=== PATIENT | female | born 1985 | race Caucasian/White ===

== ENCOUNTER 2019-06-26 06:47 | Inpatient (IN) | payer MEDICAID, OTHER ==
[~2019-06-26] VITALS: Ht 157.5 cm; Wt 78.9 kg
[2019-06-26] VITALS (35 sets, daily range): BP systolic 52–135; BP diastolic 15–80
[2019-06-26] MEDS ORDERED: DEXT 5%/LR + PITOCIN 20UNITS/L 1,000 ML IV ONE (07:23)
[2019-06-26] MEDS ORDERED: FENTANYL CITRATE/PF 50MCG/ML 2ML VIAL ONE ×2 (07:42→15:04)
[2019-06-26] MEDS ORDERED: MORPHINE SULFATE/PF 1MG/ML 10ML AMP ONE (07:43)
[2019-06-26] MEDS ORDERED: DEXT 5%/LACTATED RINGERS 1,000 ML IV SCH (07:47)
[2019-06-26] MEDS ORDERED: PENICILLIN G POTASSIUM 5 MMU in DEXT 5% WATER 100 ML IV SCH (08:00)
[2019-06-26] MEDS ORDERED: CEFAZOLIN SODIUM 1000MG/VIAL ONE (08:03)
[2019-06-26] MEDS ORDERED: OXYTOCIN 10 UNITS/ML 1ML ONE (08:03)
[2019-06-26] MEDS ORDERED: EPHEDRINE SULFATE 50MG/ML VIAL ONE ×2 (08:03→11:27)
[2019-06-26] MEDS ORDERED: GLYCOPYRROLATE 0.2 MG/ML 2ML VIAL ONE ×2 (08:09→11:27)
[2019-06-26 08:14] LABS: BASOPHILS % 0.3 % (0.0-2.0); EOSINOPHILS % 0.8 % (0.0-5.0); HEMATOCRIT. 37.4 % (36.0-48.0); HEMOGLOBIN. 12.9 g/dL (12.0-16.0); LYMPHOCYTES % 19.3 % (20.0-50.0); MEAN CORPUSCULAR HEMOGLOBIN 30.2 pg (28.0-32.0); MEAN CORPUSCULAR VOLUME 87.6 fL (81.0-99.0); MEAN PLATELET VOLUME 8.1 fl (7.4-10.4); MONOCYTES % 3.7 % (2.0-8.0); NEUTROPHILS % 75.9 % (40.0-76.0); PLATELET 171 x1000/uL (130-400); RED BLOOD CELL COUNT 4.27 mill/uL (4.2-5.4); RED CELL DISTRIBUTION WIDTH 13.4 % (11.6-14.6)
[2019-06-26] MEDS ORDERED: METOCLOPRAMIDE HCL 10MG/2ML VIAL ONE (08:18)
[2019-06-26] MEDS ORDERED: ONDANSETRON HCL 4MG/2ML INJ ONE (08:18)
[2019-06-26 08:19] LABS: CLARITY URINE TURBID (CLEAR); COLOR URINE RED (YELLOW); KETONES URINE 1+ (NEGATIVE); LEUKOCYTE ESTERASE URINE 3+ (NEGATIVE); NITRITE URINE POSITIVE (NEGATIVE); OCCULT BLOOD URINE 3+ (NEGATIVE); PROTEIN URINE 2+ (NEGATIVE); SPECIFIC GRAVITY URINE 1.015 (1.005-1.030)
[2019-06-26] MEDS ORDERED: DEXT 5%/LR + PITOCIN 20UNITS/L 1,000 ML IV SCH (08:23)
[2019-06-26] MEDS ORDERED: KETOROLAC 60MG/2ML VIAL IM ONE (08:25)
[2019-06-26] MEDS ORDERED: IBUPROFEN 400MG TABLET PO PRN (08:30)
[2019-06-26] MEDS ORDERED: RHO(D) IMMUNE GLOBULIN 300 MCG/SYR IM PRN (08:30)
[2019-06-26] MEDS ORDERED: HEMORRHOIDAL SUPP PR PRN (08:30)
[2019-06-26] MEDS ORDERED: HYDROCODONE/ACETAMINOPHEN 5/325MG TABLET PO PRN (08:30)
[2019-06-26] MEDS ORDERED: BISACODYL 10MG SUPP PR PRN (08:30)
[2019-06-26] MEDS ORDERED: ACETAMINOPHEN WITH CODEINE 300/30MG TABLET PO PRN (08:30)
[2019-06-26 08:57] LABS: *AMPHETAMINES SCREEN URINE NEGATIVE (NEGATIVE); *BARBITURATES SCREEN URINE NEGATIVE (NEGATIVE); *BENZODIAZEPINES SCREEN URINE NEGATIVE (NEGATIVE); *COCAINE SCREEN URINE NEGATIVE (NEGATIVE); OPIATES URINE SCREEN NEGATIVE (NEGATIVE); PHENCYCLIDINE URINE SCREEN NEGATIVE (NEGATIVE)
[2019-06-26 08:58] LABS: CANNABINOID URINE SCREEN NEGATIVE (NEGATIVE); METHADONE URINE SCREEN NEGATIVE (NEGATIVE)
[2019-06-26 09:16] LABS: CHLORIDE 110 mEq/L (98-107)
[2019-06-26 09:23] LABS: INR 1.1; PARTIAL THROMBOPLASTIN TIME 30.8 sec (23.4-31.0); PROTHROMBIN TIME 10.8 sec (9.6-11.0)
[2019-06-26] MEDS ORDERED: KETOROLAC 30MG/ML VIAL IV SCH (09:30)
[2019-06-26] MEDS ORDERED: DIPHENHYDRAMINE 50MG/ML VIAL IV PRN (09:30)
[2019-06-26] MEDS ORDERED: BUTORPHANOL TARTRATE 2 MG/ML VIAL IV PRN (09:30)
[2019-06-26] MEDS ORDERED: NALOXONE HCL 0.4 MG/ML 1ML VIAL IV PRN (09:30)
[2019-06-26] MEDS ORDERED: METHYLERGONOVINE MALEATE 0.2 MG/ML IM PRN (10:00)
[2019-06-26 11:34] LABS: HEPATITIS B SURFACE ANTIGEN NEGATIVE
[2019-06-26 12:18] LABS: BASOPHILS % 0.2 % (0.0-2.0); EOSINOPHILS % 0.1 % (0.0-5.0); LYMPHOCYTES % 9.9 % (20.0-50.0); MEAN CORPUSCULAR HEMOGLOBIN 29.7 pg (28.0-32.0); MEAN CORPUSCULAR VOLUME 88.8 fL (81.0-99.0); MONOCYTES % 4.9 % (2.0-8.0); NEUTROPHILS % 84.9 % (40.0-76.0); PLATELET 185 x1000/uL (130-400); RED BLOOD CELL COUNT 2.32 mill/uL (4.2-5.4); RED CELL DISTRIBUTION WIDTH 13.6 % (11.6-14.6)
[2019-06-26 12:24] LABS: HEMATOCRIT. 20.6 % (36.0-48.0); HEMOGLOBIN. 6.9 g/dL (12.0-16.0)
[2019-06-26 12:28] LABS: INR 1.2
[2019-06-26] MEDS: ONDANSETRON HCL 4MG/2ML INJ IV PRN (12:44)
[2019-06-26] MEDS ORDERED: DEXT 5%/0.9% NACL KCL 30MEQ/L 1,000 ML IV SCH (14:30)
[2019-06-26] MEDS ORDERED: ESMOLOL HCL 10MG/ML 10ML VIAL IV ONE (14:57)
[2019-06-26] MEDS ORDERED: ROCURONIUM BROMIDE 10MG/ML VIAL 5ML IV ONE (14:58)
[2019-06-26] MEDS ORDERED: LIDOCAINE HCL 1% 20ML VIAL (Pyxis) INJ ONE ×2 (14:59→17:03)
[2019-06-26] MEDS ORDERED: SODIUM BICARBONATE 4% (2.4MEQ) 5ML VIAL IV ONE ×2 (14:59→17:02)
[2019-06-26] MEDS ORDERED: ETOMIDATE 2MG/ML 10ML VIAL IV ONE (15:00)
[2019-06-26] MEDS ORDERED: POTASSIUM CHLORIDE INJ 40 MEQ in SODIUM CHLORIDE 0.9% 250 ML IV SCH (15:00)
[2019-06-26] MEDS ORDERED: OXYTOCIN 20 UNITS in LACTATED RINGERS 1,000 ML IV SCH (15:00)
[2019-06-26] MEDS ORDERED: MIDAZOLAM HCL 2 MG/2 ML VIAL ONE ×2 (15:02→16:34)
[2019-06-26] MEDS ORDERED: ALBUMIN HUMAN 25GM/500ML (5%) IV NR (15:30)
[2019-06-26] MEDS ORDERED: PHENYLEPHRINE 10 MG in DEXT 5% WATER 249 ML IV PRN (15:30)
[2019-06-26] MEDS ORDERED: HEPARIN 100 UNITS/1 ML VIAL IVF PRN (15:45)
[2019-06-26] MEDS ORDERED: CEFTRIAXONE 1 G PREMIX 50 ML IV SCH (16:00)
[2019-06-26] MEDS ORDERED: PHENYLEPHRINE HCL 10 MG/ML 1ML (IV VIAL) IV ONE ×2 (16:03→21:13)
[2019-06-26 16:11] LABS: HEMOGLOBIN. 8.6 g/dL (12.0-16.0); MEAN CORPUSCULAR HEMOGLOBIN 28.5 pg (28.0-32.0); MEAN CORPUSCULAR VOLUME 86.7 fL (81.0-99.0); MEAN PLATELET VOLUME 7.3 fl (7.4-10.4); PLATELET 101 x1000/uL (130-400)
[2019-06-26] MEDS ORDERED: ALBUMIN HUMAN 12.5G/250ML (5%) IV SCH (16:15)
[2019-06-26 16:18] LABS: CHLORIDE 116 mEq/L (98-107)
[2019-06-26 16:21] LABS: INR 1.5; PARTIAL THROMBOPLASTIN TIME 46.5 sec (23.4-31.0); PROTHROMBIN TIME 14.7 sec (9.6-11.0)
[2019-06-26] MEDS ORDERED: COAGULATION FACTOR VIIA RECOMB 1MG VIAL IV SCH (16:30)
[2019-06-26] MEDS ORDERED: COAGULATION FACTOR VIIA RECOMB 2MG VIAL IV SCH (16:30)
[2019-06-26 16:35] LABS: PLATELET ESTIMATE DECREASED
[2019-06-26] MEDS ORDERED: CALCIUM CHLORIDE 1GM/10ML SYR IV ONE (16:48)
[2019-06-26] MEDS ORDERED: IOHEXOL-300 100 ML BOTTLE ONE ×2 (17:02→18:55)
[2019-06-26] MEDS ORDERED: HEPARIN 1,000 UNITS PREMIX 0 ML IV ONE (17:03)
[2019-06-26] MEDS ORDERED: ONDANSETRON HCL 4MG/2ML INJ IV PRN ×2 (17:30)
[2019-06-26] MEDS ORDERED: LABETALOL 5MG/ML SYR 20 MG/4 ML SYRINGE IV PRN (17:30)
[2019-06-26] MEDS ORDERED: MEPERIDINE HCL/PF 25MG/ML CPJ IV PRN ×2 (17:30)
[2019-06-26] MEDS ORDERED: HYDROMORPHONE HCL/PF 2MG/ML CPJ IV PRN ×2 (17:30)
[2019-06-26] MEDS ORDERED: LABETALOL HCL 5MG/ML VIAL 20ML IV PRN (17:30)
[2019-06-26 18:21] LABS: BG BASE EXCESS -8.6 mmol/L (-2.0-2.0); BG CARBOXYHEMOGLOBIN 0.1 % (0.5-1.5); BG DEOXYHEMOGLOBIN 0.7 % (0.0-5.0); BG FRACTION INSPIRED OXYGEN 100; BG HCO3 ACT 17.9 mmol/L (22.0-26.0); BG METHEMOGLOBIN 0.4 % (0.0-1.5); BG OXYGEN SATURATION 99.3 % (92.0-98.5); BG OXYHEMOGLOBIN 98.8 % (94.0-97.0); BG PCO2 41.2 mmHg (35.0-45.0); BG PH 7.257 (7.350-7.450); BG PO2 383.7 mmHg (75.0-100.0); BG SAMPLE SITE RIGHT BRACHIAL; BG TIDAL VOLUME(mL) 500 mL; BG TOTAL HEMOGLOBIN 11.6 g/dL (12.0-18.0); BG VENT MODE VENT - A/C; BG VENT RATE 10 set
[2019-06-26] MEDS ORDERED: IPRATROPIUM/ALBUTEROL 0.5-3(2.5)MG/3ML NEB HHN PRN (18:45)
[2019-06-26] MEDS ORDERED: PROPOFOL 10MG/ML 100ML 100 ML IV PRN (18:45)
[2019-06-26] MEDS ORDERED: SODIUM BICARBONATE 8.4% 1 MEQ/ML 50ML SYR IV NR ×2 (19:00)
[2019-06-26] MEDS: LACTATED RINGERS 1,000 ML IV SCH (19:15)
[2019-06-26] MEDS: IPRATROPIUM/ALBUTEROL 0.5-3(2.5)MG/3ML NEB NEB SCH (20:11)
[2019-06-26 20:27] LABS: BASOPHILS % 0.1 % (0.0-2.0); HEMATOCRIT. 30.6 % (36.0-48.0); HEMOGLOBIN. 10.5 g/dL (12.0-16.0); MEAN CORPUSCULAR HEMOGLOBIN 29.8 pg (28.0-32.0); MEAN PLATELET VOLUME 8.1 fl (7.4-10.4); MONOCYTES % 8.6 % (2.0-8.0); NEUTROPHILS % 82.3 % (40.0-76.0); PLATELET 68 x1000/uL (130-400); RED BLOOD CELL COUNT 3.51 mill/uL (4.2-5.4); RED CELL DISTRIBUTION WIDTH 14.4 % (11.6-14.6)
[2019-06-26 20:43] LABS: CHLORIDE 114 mEq/L (98-107)
[2019-06-26 20:50] LABS: D-DIMER 4.02 mg/L FEU (<0.50); PARTIAL THROMBOPLASTIN TIME 28.1 sec (23.4-31.0); PROTHROMBIN TIME 9.8 sec (9.6-11.0)
[2019-06-26] MEDS: DOCUSATE SODIUM 100MG CAPSULE PO SCH (21:00)
[2019-06-26 22:02] LABS: BG BASE EXCESS -3.3 mmol/L (-2.0-2.0); BG CARBOXYHEMOGLOBIN 0.3 % (0.5-1.5); BG DEOXYHEMOGLOBIN 1.7 % (0.0-5.0); BG FRACTION INSPIRED OXYGEN 40; BG HCO3 ACT 21.9 mmol/L (22.0-26.0); BG METHEMOGLOBIN 0.2 % (0.0-1.5); BG OXYGEN SATURATION 98.3 % (92.0-98.5); BG OXYHEMOGLOBIN 97.8 % (94.0-97.0); BG PCO2 40.1 mmHg (35.0-45.0); BG PH 7.356 (7.350-7.450); BG PO2 159.9 mmHg (75.0-100.0); BG SAMPLE SITE RIGHT RADIAL; BG TIDAL VOLUME(mL) 500 mL; BG VENT MODE VENT - A/C; BG VENT RATE 14 set
[2019-06-26] MEDS: FENTANYL CITRATE/PF 500 MCG in SODIUM CHLORIDE 0.9% 40 ML IV PRN (23:47)
[2019-06-27] VITALS (108 sets, daily range): BP systolic 57–179; BP diastolic 33–105
[2019-06-27] MEDS: IPRATROPIUM/ALBUTEROL 0.5-3(2.5)MG/3ML NEB NEB SCH ×4 (02:16→20:14)
[2019-06-27 05:23] LABS: BASOPHILS % 0.1 % (0.0-2.0); EOSINOPHILS % 0.1 % (0.0-5.0); HEMATOCRIT. 23.1 % (36.0-48.0); HEMOGLOBIN. 8.3 g/dL (12.0-16.0); LYMPHOCYTES % 8.1 % (20.0-50.0); MEAN CORPUSCULAR HEMOGLOBIN 29.8 pg (28.0-32.0); MEAN CORPUSCULAR VOLUME 83.5 fL (81.0-99.0); MEAN PLATELET VOLUME 7.3 fl (7.4-10.4); MONOCYTES % 6.8 % (2.0-8.0); NEUTROPHILS % 84.9 % (40.0-76.0); PLATELET 96 x1000/uL (130-400); RED BLOOD CELL COUNT 2.77 mill/uL (4.2-5.4); RED CELL DISTRIBUTION WIDTH 14.8 % (11.6-14.6)
[2019-06-27] MEDS ORDERED: GENTAMICIN 120MG PREMIX 100 ML IV SCH (06:00)
[2019-06-27] MEDS: LACTATED RINGERS 1,000 ML IV SCH ×3 (06:22→18:13)
[2019-06-27] MEDS: ACETAMINOPHEN 650MG SUPP PR PRN (06:23)
[2019-06-27] MEDS: FERROUS SULFATE 325MG TABLET PO SCH ×4 (08:20→18:20)
[2019-06-27] MEDS ORDERED: FUROSEMIDE 20MG/2ML VIAL IVP NR (08:30)
[2019-06-27] MEDS: CEFAZOLIN 2,000 MG in DEXT 5% WATER 100 ML IV SCH ×4 (09:05→23:22)
[2019-06-27] MEDS: CLINDAMYCIN 900 MG in DEXTROSE 5% WATER 50 ML IV SCH ×3 (09:06→22:06)
[2019-06-27] MEDS: FENTANYL CITRATE/PF 500 MCG in SODIUM CHLORIDE 0.9% 40 ML IV PRN ×3 (09:06→23:41)
[2019-06-27 09:29] LABS: BG CARBOXYHEMOGLOBIN 0.5 % (0.5-1.5); BG DEOXYHEMOGLOBIN 1.5 % (0.0-5.0); BG FRACTION INSPIRED OXYGEN 40; BG HCO3 ACT 23.5 mmol/L (22.0-26.0); BG METHEMOGLOBIN 0.2 % (0.0-1.5); BG OXYGEN SATURATION 98.5 % (92.0-98.5); BG OXYHEMOGLOBIN 97.8 % (94.0-97.0); BG PCO2 37.8 mmHg (35.0-45.0); BG PH 7.411 (7.350-7.450); BG PO2 118.6 mmHg (75.0-100.0); BG SAMPLE SITE RIGHT BRACHIAL; BG TIDAL VOLUME(mL) 500 mL; BG TOTAL HEMOGLOBIN 7.5 g/dL (12.0-18.0); BG VENT MODE VENT - A/C; BG VENT RATE 14 set
[2019-06-27 10:09] LABS: HEMATOCRIT 21.7 % (36.0-48.0); HEMOGLOBIN 7.7 g/dL (12.0-16.0); MEAN CORPUSCULAR VOLUME 84.1 fL (81.0-99.0); PLATELET 101 x1000/uL (130-400); RED BLOOD CELL COUNT 2.58 mill/uL (4.2-5.4); RED CELL DISTRIBUTION WIDTH 15.1 % (11.6-14.6)
[2019-06-27 10:27] LABS: CHLORIDE 112 mEq/L (98-107)
[2019-06-27] MEDS ORDERED: FUROSEMIDE 40MG/4ML VIAL IVP SCH (16:15)
[2019-06-27] MEDS: DIPHENHYDRAMINE 50MG/ML VIAL IV SCH ×2 (16:19→22:06)
[2019-06-27 17:59] LABS: HEMATOCRIT 32.9 % (36.0-48.0); HEMOGLOBIN 11.5 g/dL (12.0-16.0)
[2019-06-27 18:45] LABS: CLARITY URINE CLEAR (CLEAR); COLOR URINE YELLOW (YELLOW); KETONES URINE NEGATIVE (NEGATIVE); LEUKOCYTE ESTERASE URINE NEGATIVE (NEGATIVE); NITRITE URINE NEGATIVE (NEGATIVE); OCCULT BLOOD URINE 2+ (NEGATIVE); PH URINE 6.5 (4.5-8.0); PROTEIN URINE TRACE (NEGATIVE); SPECIFIC GRAVITY URINE 1.022 (1.005-1.030); UROBILINOGEN URINE 0.2 E.U./dL (0.2-1.0)
[2019-06-27] MEDS: FAMOTIDINE 20MG/2ML VIAL IV SCH (20:41)
[2019-06-27] MEDS: GENTAMICIN 100MG PREMIX 50 ML IV SCH (20:41)
[2019-06-27] MEDS: DOCUSATE SODIUM 100MG CAPSULE PO SCH (21:00)
[2019-06-28] VITALS (70 sets, daily range): BP systolic 113–159; BP diastolic 56–96
[2019-06-28] MEDS: LACTATED RINGERS 1,000 ML IV SCH ×3 (00:23→18:08)
[2019-06-28 01:03] LABS: BASOPHILS % 0.3 % (0.0-2.0); EOSINOPHILS % 0.2 % (0.0-5.0); HEMATOCRIT. 27.6 % (36.0-48.0); HEMOGLOBIN. 9.8 g/dL (12.0-16.0); LYMPHOCYTES % 10.6 % (20.0-50.0); MEAN CORPUSCULAR HEMOGLOBIN 30.4 pg (28.0-32.0); MEAN CORPUSCULAR VOLUME 85.4 fL (81.0-99.0); MONOCYTES % 3.3 % (2.0-8.0); NEUTROPHILS % 85.6 % (40.0-76.0); PLATELET 95 x1000/uL (130-400); RED BLOOD CELL COUNT 3.23 mill/uL (4.2-5.4)
[2019-06-28] MEDS: IPRATROPIUM/ALBUTEROL 0.5-3(2.5)MG/3ML NEB NEB SCH ×4 (01:36→20:20)
[2019-06-28] MEDS: ONDANSETRON HCL 4MG/2ML INJ IV PRN ×2 (02:52→13:13)
[2019-06-28] MEDS: DIPHENHYDRAMINE 50MG/ML VIAL IV SCH ×2 (04:39→10:17)
[2019-06-28] MEDS: CEFAZOLIN 2,000 MG in DEXT 5% WATER 100 ML IV SCH ×3 (05:42→18:07)
[2019-06-28 06:10] LABS: BASOPHILS % 0.1 % (0.0-2.0); EOSINOPHILS % 0.1 % (0.0-5.0); HEMATOCRIT. 26.9 % (36.0-48.0); HEMOGLOBIN. 9.8 g/dL (12.0-16.0); LYMPHOCYTES % 9.5 % (20.0-50.0); MEAN CORPUSCULAR HEMOGLOBIN 30.6 pg (28.0-32.0); MEAN CORPUSCULAR VOLUME 84.5 fL (81.0-99.0); MEAN PLATELET VOLUME 7.8 fl (7.4-10.4); MONOCYTES % 3.7 % (2.0-8.0); NEUTROPHILS % 86.6 % (40.0-76.0); PLATELET 103 x1000/uL (130-400); RED BLOOD CELL COUNT 3.18 mill/uL (4.2-5.4); RED CELL DISTRIBUTION WIDTH 14.9 % (11.6-14.6)
[2019-06-28 06:15] LABS: CHLORIDE 106 mEq/L (98-107)
[2019-06-28] MEDS: FENTANYL CITRATE/PF 500 MCG in SODIUM CHLORIDE 0.9% 40 ML IV PRN ×3 (06:57→20:00)
[2019-06-28] MEDS: FERROUS SULFATE 325MG TABLET PO SCH ×3 (07:50→17:55)
[2019-06-28] MEDS: GENTAMICIN 100MG PREMIX 50 ML IV SCH (08:32)
[2019-06-28] MEDS: FAMOTIDINE 20MG/2ML VIAL IV SCH (08:32)
[2019-06-28] MEDS: CLINDAMYCIN 900 MG in DEXTROSE 5% WATER 50 ML IV SCH ×2 (08:32→15:26)
[2019-06-28] MEDS ORDERED: PANTOPRAZOLE SODIUM 40 MG/VIAL IV SCH (09:00)
[2019-06-28] MEDS ORDERED: IOHEXOL-350 100 ML BOTTLE ONE (10:47)
[2019-06-28 11:04] LABS: INR 1.2; PARTIAL THROMBOPLASTIN TIME 38.6 sec (23.4-31.0); PROTHROMBIN TIME 12.1 sec (9.6-11.0)
[2019-06-28 11:53] LABS: CHLORIDE 105 mEq/L (98-107)
[2019-06-28 13:19] LABS: HEMOGLOBIN 9.8 g/dL (12.0-16.0)
[2019-06-28 14:37] LABS: HEPATITIS B SURFACE ANTIGEN NEGATIVE
[2019-06-28 15:06] LABS: HEPATITIS A AB IGM NEGATIVE (NEGATIVE)
[2019-06-28] MEDS: PANTOPRAZOLE SODIUM 40 MG/VIAL IV SCH (15:26)
[2019-06-28] MEDS: ACETAMINOPHEN 650MG SUPP PR PRN (15:39)
[2019-06-28 18:25] LABS: HEMATOCRIT 27.4 % (36.0-48.0); HEMOGLOBIN 9.6 g/dL (12.0-16.0)
[2019-06-28] MEDS: GENTAMICIN 120MG PREMIX 100 ML IV SCH (20:55)
[2019-06-28] MEDS: DOCUSATE SODIUM 100MG CAPSULE PO SCH (20:56)
[2019-06-28] MEDS: MORPHINE SULFATE 2 MG/ML CPJ (NOT FOR IM USE) IV PRN (23:55)
[2019-06-29] VITALS (57 sets, daily range): BP systolic 112–174; BP diastolic 60–103
[2019-06-29] MEDS: ONDANSETRON HCL 4MG/2ML INJ IV PRN ×2 (00:07→17:57)
[2019-06-29] MEDS: CLINDAMYCIN 900 MG in DEXTROSE 5% WATER 50 ML IV SCH ×4 (00:24→23:25)
[2019-06-29] MEDS: CEFAZOLIN 2,000 MG in DEXT 5% WATER 100 ML IV SCH ×5 (00:24→23:25)
[2019-06-29] MEDS: LACTATED RINGERS 1,000 ML IV SCH ×3 (00:54→17:42)
[2019-06-29] MEDS: FENTANYL CITRATE/PF 500 MCG in SODIUM CHLORIDE 0.9% 40 ML IV PRN ×3 (01:05→23:26)
[2019-06-29 01:35] LABS: HEMATOCRIT 25.8 % (36.0-48.0); HEMOGLOBIN 9.2 g/dL (12.0-16.0)
[2019-06-29] MEDS: IPRATROPIUM/ALBUTEROL 0.5-3(2.5)MG/3ML NEB NEB SCH ×6 (03:27→20:12)
[2019-06-29 05:21] LABS: HEMATOCRIT 25.9 % (36.0-48.0); HEMOGLOBIN 9.3 g/dL (12.0-16.0)
[2019-06-29] MEDS: FERROUS SULFATE 325MG TABLET PO SCH ×3 (08:29→17:40)
[2019-06-29] MEDS: GENTAMICIN 120MG PREMIX 100 ML IV SCH ×2 (08:30→21:38)
[2019-06-29] MEDS: PANTOPRAZOLE SODIUM 40 MG/VIAL IV SCH (08:30)
[2019-06-29 08:42] LABS: BG CARBOXYHEMOGLOBIN 0.5 % (0.5-1.5); BG DEOXYHEMOGLOBIN 1.6 % (0.0-5.0); BG FRACTION INSPIRED OXYGEN 40; BG HCO3 ACT 27.8 mmol/L (22.0-26.0); BG METHEMOGLOBIN 0.5 % (0.0-1.5); BG OXYGEN SATURATION 98.4 % (92.0-98.5); BG OXYHEMOGLOBIN 97.4 % (94.0-97.0); BG PCO2 38.4 mmHg (35.0-45.0); BG PH 7.478 (7.350-7.450); BG PO2 139.8 mmHg (75.0-100.0); BG SAMPLE SITE RIGHT RADIAL; BG TIDAL VOLUME(mL) 500 mL; BG TOTAL HEMOGLOBIN 6.7 g/dL (12.0-18.0); BG VENT MODE VENT - A/C; BG VENT RATE 14 set
[2019-06-29 10:22] LABS: D-DIMER 13.04 mg/L FEU (<0.50); PARTIAL THROMBOPLASTIN TIME 35.1 sec (23.4-31.0); PROTHROMBIN TIME 10.6 sec (9.6-11.0)
[2019-06-29 13:04] LABS: BASOPHILS % 0.1 % (0.0-2.0); EOSINOPHILS % 0.4 % (0.0-5.0); HEMATOCRIT. 26.2 % (36.0-48.0); HEMOGLOBIN. 9.2 g/dL (12.0-16.0); LYMPHOCYTES % 7.5 % (20.0-50.0); MEAN CORPUSCULAR HEMOGLOBIN 30.6 pg (28.0-32.0); MEAN CORPUSCULAR VOLUME 87.1 fL (81.0-99.0); MEAN PLATELET VOLUME 7.7 fl (7.4-10.4); MONOCYTES % 3.7 % (2.0-8.0); NEUTROPHILS % 88.3 % (40.0-76.0); PLATELET 131 x1000/uL (130-400); RED BLOOD CELL COUNT 3.01 mill/uL (4.2-5.4); RED CELL DISTRIBUTION WIDTH 14.6 % (11.6-14.6)
[2019-06-29] MEDS: MORPHINE SULFATE 2 MG/ML CPJ (NOT FOR IM USE) IV PRN (17:57)
[2019-06-29] MEDS: ACETAMINOPHEN 650MG SUPP PR PRN (18:27)
[2019-06-29 20:31] LABS: HEMATOCRIT 25.9 % (36.0-48.0)
[2019-06-29 20:40] LABS: CHLORIDE 103 mEq/L (98-107)
[2019-06-29] MEDS: DOCUSATE SODIUM 100MG CAPSULE PO SCH (21:38)
[2019-06-30] VITALS (63 sets, daily range): BP systolic 107–159; BP diastolic 51–109
[2019-06-30] MEDS ORDERED: FOLIC ACID 1 MG, THIAMINE HCL 100 MG, MVI, ADULT NO.1 10 ML in DEXTROSE 5% WATER 1,000 ML IV ONE ×4 (01:00)
[2019-06-30] MEDS: IPRATROPIUM/ALBUTEROL 0.5-3(2.5)MG/3ML NEB NEB SCH ×3 (02:10→21:01)
[2019-06-30 02:14] LABS: HEMATOCRIT 24.1 % (36.0-48.0); HEMOGLOBIN 8.3 g/dL (12.0-16.0)
[2019-06-30] MEDS: LACTATED RINGERS 1,000 ML IV SCH ×3 (03:09→18:20)
[2019-06-30] MEDS ORDERED: KCL 20MEQ/100ML PREMIX 100 ML IV SCH (05:00)
[2019-06-30] MEDS: CEFAZOLIN 2,000 MG in DEXT 5% WATER 100 ML IV SCH ×3 (05:15→18:20)
[2019-06-30 06:22] LABS: HEMATOCRIT 23.5 % (36.0-48.0); HEMOGLOBIN 8.4 g/dL (12.0-16.0)
[2019-06-30] MEDS: CLINDAMYCIN 900 MG in DEXTROSE 5% WATER 50 ML IV SCH ×3 (06:56→22:33)
[2019-06-30] MEDS ORDERED: ROCURONIUM BROMIDE 10MG/ML VIAL 5ML IV ONE (08:10)
[2019-06-30] MEDS ORDERED: HYDROMORPHONE HCL/PF 2MG/ML (OR) ONE (08:34)
[2019-06-30] MEDS ORDERED: HYDROMORPHONE HCL/PF 2MG/ML CPJ IV PRN (08:45)
[2019-06-30] MEDS ORDERED: ONDANSETRON HCL 4MG/2ML INJ IV PRN (08:45)
[2019-06-30] MEDS ORDERED: GLYCOPYRROLATE 0.2 MG/ML 2ML VIAL ONE ×2 (08:45→08:53)
[2019-06-30] MEDS ORDERED: LABETALOL 5MG/ML SYR 20 MG/4 ML SYRINGE IV PRN (08:45)
[2019-06-30] MEDS ORDERED: MEPERIDINE HCL/PF 25MG/ML CPJ IV PRN (08:45)
[2019-06-30] MEDS ORDERED: NEOSTIGMINE METHYLSULFATE 1MG/ML 10 ML VIAL ONE (08:45)
[2019-06-30] MEDS ORDERED: LABETALOL HCL 5MG/ML VIAL 20ML IV ONE (08:57)
[2019-06-30] MEDS ORDERED: MIDAZOLAM HCL 2 MG/2 ML VIAL ONE (08:58)
[2019-06-30] MEDS: FERROUS SULFATE 325MG TABLET PO SCH ×3 (09:53→18:20)
[2019-06-30] MEDS: GENTAMICIN SULFATE 140 MG in SODIUM CHLORIDE 0.9% 100 ML IV SCH ×2 (09:53→21:55)
[2019-06-30] MEDS: PANTOPRAZOLE SODIUM 40 MG/VIAL IV SCH (09:54)
[2019-06-30 12:21] LABS: HEMOGLOBIN 9.5 g/dL (12.0-16.0)
[2019-06-30 12:31] LABS: BG BASE EXCESS 0.8 mmol/L (-2.0-2.0); BG CARBOXYHEMOGLOBIN 0.1 % (0.5-1.5); BG FRACTION INSPIRED OXYGEN 50; BG HCO3 ACT 25.8 mmol/L (22.0-26.0); BG METHEMOGLOBIN 0.3 % (0.0-1.5); BG OXYHEMOGLOBIN 97.6 % (94.0-97.0); BG PCO2 42.8 mmHg (35.0-45.0); BG PH 7.398 (7.350-7.450); BG PO2 118.6 mmHg (75.0-100.0); BG PRESSURE SUPPORT 8; BG SAMPLE SITE RIGHT RADIAL; BG TOTAL HEMOGLOBIN 10.9 g/dL (12.0-18.0); BG VENT MODE VENT - CPAP
[2019-06-30 19:19] LABS: HEMATOCRIT 27.9 % (36.0-48.0); HEMOGLOBIN 9.8 g/dL (12.0-16.0)
[2019-06-30] MEDS: DOCUSATE SODIUM 100MG CAPSULE PO SCH (20:10)
[2019-06-30] MEDS: MORPHINE SULFATE 2 MG/ML CPJ (NOT FOR IM USE) IV PRN (20:12)
[2019-07-01] VITALS (55 sets, daily range): BP systolic 109–147; BP diastolic 26–99
[2019-07-01] MEDS: CEFAZOLIN 2,000 MG in DEXT 5% WATER 100 ML IV SCH ×4 (00:11→18:27)
[2019-07-01] MEDS: ACETAMINOPHEN 650MG SUPP PR PRN (00:11)
[2019-07-01] MEDS: IPRATROPIUM/ALBUTEROL 0.5-3(2.5)MG/3ML NEB NEB SCH ×4 (01:28→21:33)
[2019-07-01] MEDS: MORPHINE SULFATE 2 MG/ML CPJ (NOT FOR IM USE) IV PRN ×4 (01:49→19:30)
[2019-07-01] MEDS: LACTATED RINGERS 1,000 ML IV SCH ×3 (02:43→20:01)
[2019-07-01] MEDS: CLINDAMYCIN 900 MG in DEXTROSE 5% WATER 50 ML IV SCH ×3 (06:32→22:33)
[2019-07-01 06:48] LABS: HEMOGLOBIN. 8.7 g/dL (12.0-16.0); MEAN CORPUSCULAR HEMOGLOBIN 30.2 pg (28.0-32.0); PLATELET 190 x1000/uL (130-400); RED BLOOD CELL COUNT 2.88 mill/uL (4.2-5.4); RED CELL DISTRIBUTION WIDTH 14.8 % (11.6-14.6)
[2019-07-01 07:33] LABS: CHLORIDE 106 mEq/L (98-107)
[2019-07-01] MEDS: MAGNESIUM/ALUMINUM HYDROXIDE/SIMETHICONE 30ML UDC PO SCH ×4 (08:20→21:00)
[2019-07-01] MEDS: FERROUS SULFATE 325MG TABLET PO SCH ×3 (08:20→18:00)
[2019-07-01] MEDS: SIMETHICONE 80MG TABLET CHEW PO SCH ×4 (08:50→21:00)
[2019-07-01] MEDS: PRENATAL VIT/FE FUMARATE/FA TABLET PO SCH (09:00)
[2019-07-01] MEDS ORDERED: POTASSIUM CHLORIDE INJ 40 MEQ in DEXT 5% WATER 250 ML IV SCH (09:00)
[2019-07-01] MEDS: GENTAMICIN SULFATE 140 MG in SODIUM CHLORIDE 0.9% 100 ML IV SCH ×2 (09:07→21:04)
[2019-07-01] MEDS: PANTOPRAZOLE SODIUM 40 MG/VIAL IV SCH (09:07)
[2019-07-01 13:47] LABS: PLATELET ESTIMATE NORMAL
[2019-07-01] MEDS ORDERED: POTASSIUM CHLORIDE INJ 40 MEQ in DEXT 5% WATER 500 ML IV SCH (15:00)
[2019-07-01] MEDS: PHENOL/SODIUM PHENOLATE 1.4% SRPAY 177ML MM PRN (17:27)
[2019-07-01] MEDS: DOCUSATE SODIUM 100MG CAPSULE PO SCH (21:00)
[2019-07-02] VITALS (10 sets, daily range): BP systolic 119–137; BP diastolic 61–85
[2019-07-02] MEDS: CEFAZOLIN 2,000 MG in DEXT 5% WATER 100 ML IV SCH ×5 (00:21→23:51)
[2019-07-02] MEDS: IPRATROPIUM/ALBUTEROL 0.5-3(2.5)MG/3ML NEB NEB SCH ×2 (01:32→11:17)
[2019-07-02] MEDS: MORPHINE SULFATE 2 MG/ML CPJ (NOT FOR IM USE) IV PRN ×3 (02:09→22:35)
[2019-07-02] MEDS: LACTATED RINGERS 1,000 ML IV SCH ×3 (03:15→20:59)
[2019-07-02] MEDS: PHENOL/SODIUM PHENOLATE 1.4% SRPAY 177ML MM PRN (06:00)
[2019-07-02 06:10] LABS: CHLORIDE 106 mEq/L (98-107)
[2019-07-02] MEDS: CLINDAMYCIN 900 MG in DEXTROSE 5% WATER 50 ML IV SCH ×3 (06:13→22:55)
[2019-07-02 06:19] LABS: GENTAMICIN RANDOM 0.6 ug/mL
[2019-07-02] MEDS: PRENATAL VIT/FE FUMARATE/FA TABLET PO SCH (09:00)
[2019-07-02] MEDS: PANTOPRAZOLE SODIUM 40 MG/VIAL IV SCH (09:22)
[2019-07-02] MEDS: MAGNESIUM/ALUMINUM HYDROXIDE/SIMETHICONE 30ML UDC PO SCH ×4 (09:22→20:44)
[2019-07-02] MEDS: FERROUS SULFATE 325MG TABLET PO SCH ×3 (09:22→19:01)
[2019-07-02] MEDS: SIMETHICONE 80MG TABLET CHEW PO SCH ×4 (09:22→20:55)
[2019-07-02] MEDS: GENTAMICIN SULFATE 140 MG in SODIUM CHLORIDE 0.9% 100 ML IV SCH (09:23)
[2019-07-02] MEDS ORDERED: IPRATROPIUM/ALBUTEROL 0.5-3(2.5)MG/3ML NEB HHN PRN (15:00)
[2019-07-02] MEDS ORDERED: POTASSIUM CHLORIDE INJ 40 MEQ in DEXT 5% WATER 250 ML IV SCH (20:00)
[2019-07-02] MEDS: DOCUSATE SODIUM 100MG CAPSULE PO SCH (20:44)
[2019-07-02] MEDS ORDERED: GENTAMICIN 120MG PREMIX 100 ML IV SCH (21:00)
[2019-07-02] MEDS ORDERED: MORPHINE SULFATE 2 MG/ML CPJ (NOT FOR IM USE) IV PRN (23:00)
[2019-07-03] VITALS (12 sets, daily range): BP systolic 103–136; BP diastolic 72–93
[2019-07-03] MEDS: LACTATED RINGERS 1,000 ML IV SCH (03:15)
[2019-07-03] MEDS: CEFAZOLIN 2,000 MG in DEXT 5% WATER 100 ML IV SCH (05:11)
[2019-07-03] MEDS: PRENATAL VIT/FE FUMARATE/FA TABLET PO SCH (08:52)
[2019-07-03] MEDS: FERROUS SULFATE 325MG TABLET PO SCH ×3 (08:52→17:05)
[2019-07-03] MEDS: MAGNESIUM/ALUMINUM HYDROXIDE/SIMETHICONE 30ML UDC PO SCH ×4 (08:52→21:28)
[2019-07-03] MEDS: SIMETHICONE 80MG TABLET CHEW PO SCH ×4 (08:52→21:28)
[2019-07-03] MEDS ORDERED: POTASSIUM CHLORIDE 20MEQ TABLET SR PO NR (15:15)
[2019-07-03] MEDS: DOCUSATE SODIUM 100MG CAPSULE PO SCH (21:28)
[2019-07-04] VITALS (7 sets, daily range): BP systolic 117–133; BP diastolic 63–85
[2019-07-04 07:53] LABS: HEMATOCRIT. 31.8 % (36.0-48.0); HEMOGLOBIN. 10.9 g/dL (12.0-16.0); MEAN CORPUSCULAR HEMOGLOBIN 29.6 pg (28.0-32.0); MEAN CORPUSCULAR VOLUME 86.7 fL (81.0-99.0); MEAN PLATELET VOLUME 6.9 fl (7.4-10.4); PLATELET 428 x1000/uL (130-400); RED BLOOD CELL COUNT 3.67 mill/uL (4.2-5.4); RED CELL DISTRIBUTION WIDTH 14.4 % (11.6-14.6)
[2019-07-04 07:55] LABS: CHLORIDE 106 mEq/L (98-107)
[2019-07-04 08:01] LABS: PHOSPHORUS 2.9 mg/dL (2.5-4.9)
[2019-07-04] MEDS: MAGNESIUM/ALUMINUM HYDROXIDE/SIMETHICONE 30ML UDC PO SCH ×4 (08:33→21:20)
[2019-07-04] MEDS: FERROUS SULFATE 325MG TABLET PO SCH ×3 (08:34→18:24)
[2019-07-04] MEDS: SIMETHICONE 80MG TABLET CHEW PO SCH ×4 (08:34→20:24)
[2019-07-04] MEDS: PRENATAL VIT/FE FUMARATE/FA TABLET PO SCH (08:34)
[2019-07-04] MEDS: MULTIVITAMINS,THER W-MINERALS TABLET PO SCH (08:34)
[2019-07-04 09:41] LABS: NUCLEATED RED BLOOD CELLS 1 /100 WBC; PLATELET ESTIMATE INCREASED
[2019-07-04] MEDS ORDERED: POTASSIUM CHLORIDE 20MEQ TABLET SR PO SCH (10:30)
[2019-07-04] MEDS: DOCUSATE SODIUM 100MG CAPSULE PO SCH (20:58)
[2019-07-05] VITALS: BP 112/67
[2019-07-05] MEDS: ACETAMINOPHEN 650MG SUPP PR PRN (02:51)
[2019-07-05 04:00] VITALS: BP 104/57
[2019-07-05] MEDS: MAGNESIUM/ALUMINUM HYDROXIDE/SIMETHICONE 30ML UDC PO SCH ×4 (07:50→21:00)
[2019-07-05] MEDS: FERROUS SULFATE 325MG TABLET PO SCH ×3 (09:23→18:08)
[2019-07-05] MEDS: MULTIVITAMINS,THER W-MINERALS TABLET PO SCH (09:23)
[2019-07-05] MEDS: PRENATAL VIT/FE FUMARATE/FA TABLET PO SCH (09:23)
[2019-07-05] MEDS: SIMETHICONE 80MG TABLET CHEW PO SCH ×4 (09:23→21:00)
[2019-07-05] MEDS: OXYCODONE HCL/ACETAMINOPHEN 5/325MG TABLET PO PRN (18:13)
[2019-07-05 20:00] VITALS: BP 108/59
[2019-07-05] MEDS: DOCUSATE SODIUM 100MG CAPSULE PO SCH (21:00)
[2019-07-05] MEDS: GUAIFENESIN 600MG ER TABLET PO SCH (21:00)
[2019-07-06] VITALS: BP 119/70
[2019-07-06] MEDS: OXYCODONE HCL/ACETAMINOPHEN 5/325MG TABLET PO PRN ×4 (01:45→21:29)
[2019-07-06 04:00] VITALS: BP 101/55
[2019-07-06 08:00] VITALS: BP 112/65
[2019-07-06] MEDS: PRENATAL VIT/FE FUMARATE/FA TABLET PO SCH (08:29)
[2019-07-06] MEDS: FERROUS SULFATE 325MG TABLET PO SCH ×3 (08:29→17:53)
[2019-07-06] MEDS: SIMETHICONE 80MG TABLET CHEW PO SCH ×4 (08:29→20:21)
[2019-07-06] MEDS: MULTIVITAMINS,THER W-MINERALS TABLET PO SCH (08:29)
[2019-07-06] MEDS: MAGNESIUM/ALUMINUM HYDROXIDE/SIMETHICONE 30ML UDC PO SCH ×4 (08:43→20:21)
[2019-07-06] MEDS: GUAIFENESIN 600MG ER TABLET PO SCH ×2 (08:43→20:21)
[2019-07-06 11:12] VITALS: BP 101/55
[2019-07-06] MEDS ORDERED: POTASSIUM CHLORIDE 20MEQ TABLET SR PO NR (15:15)
[2019-07-06 16:00] VITALS: BP 117/69
[2019-07-06 20:00] VITALS: BP 124/63
[2019-07-06] MEDS: DOCUSATE SODIUM 100MG CAPSULE PO SCH (20:21)
[2019-07-07] VITALS: BP 107/62
[2019-07-07 04:00] VITALS: BP 110/64
[2019-07-07] MEDS: OXYCODONE HCL/ACETAMINOPHEN 5/325MG TABLET PO PRN ×4 (06:27→22:42)
[2019-07-07 08:00] VITALS: BP 114/70
[2019-07-07] MEDS: MULTIVITAMINS,THER W-MINERALS TABLET PO SCH (08:20)
[2019-07-07] MEDS: FERROUS SULFATE 325MG TABLET PO SCH ×3 (08:20→18:02)
[2019-07-07] MEDS: PRENATAL VIT/FE FUMARATE/FA TABLET PO SCH (08:20)
[2019-07-07] MEDS: MAGNESIUM/ALUMINUM HYDROXIDE/SIMETHICONE 30ML UDC PO SCH ×4 (08:20→20:07)
[2019-07-07] MEDS: GUAIFENESIN 600MG ER TABLET PO SCH ×2 (08:21→20:05)
[2019-07-07] MEDS: SIMETHICONE 80MG TABLET CHEW PO SCH ×4 (08:21→20:05)
[2019-07-07 12:00] VITALS: BP 108/62
[2019-07-07 16:00] VITALS: BP 114/64
[2019-07-07 20:00] VITALS: BP_SYST 101; BP_SYST 141; BP_DIAS 62; BP_DIAS 98
[2019-07-07] MEDS: DOCUSATE SODIUM 100MG CAPSULE PO SCH (20:05)
[2019-07-08] VITALS: BP 101/62
[2019-07-08 04:00] VITALS: BP 109/61
[2019-07-08] MEDS: OXYCODONE HCL/ACETAMINOPHEN 5/325MG TABLET PO PRN ×3 (04:49→17:30)
[2019-07-08 08:00] VITALS: BP 110/65
[2019-07-08] MEDS: SIMETHICONE 80MG TABLET CHEW PO SCH ×4 (08:19→22:41)
[2019-07-08] MEDS: FERROUS SULFATE 325MG TABLET PO SCH ×3 (08:19→16:37)
[2019-07-08] MEDS: MAGNESIUM/ALUMINUM HYDROXIDE/SIMETHICONE 30ML UDC PO SCH ×4 (08:19→22:41)
[2019-07-08] MEDS: MULTIVITAMINS,THER W-MINERALS TABLET PO SCH (08:20)
[2019-07-08] MEDS: GUAIFENESIN 600MG ER TABLET PO SCH ×2 (08:20→22:41)
[2019-07-08] MEDS: PRENATAL VIT/FE FUMARATE/FA TABLET PO SCH (08:20)
[2019-07-08 16:00] VITALS: BP 110/64
[2019-07-08 20:00] VITALS: BP 116/62
[2019-07-08] MEDS: DOCUSATE SODIUM 100MG CAPSULE PO SCH (22:41)
[2019-07-09] VITALS: BP 108/66
[2019-07-09] MEDS: OXYCODONE HCL/ACETAMINOPHEN 5/325MG TABLET PO PRN (01:35)
[2019-07-09 04:00] VITALS: BP 118/62
[2019-07-09 08:00] VITALS: BP 110/68
[2019-07-09] MEDS: MULTIVITAMINS,THER W-MINERALS TABLET PO SCH (08:01)
[2019-07-09] MEDS: SIMETHICONE 80MG TABLET CHEW PO SCH ×2 (08:01→13:44)
[2019-07-09] MEDS: GUAIFENESIN 600MG ER TABLET PO SCH (08:01)
[2019-07-09] MEDS: PRENATAL VIT/FE FUMARATE/FA TABLET PO SCH (08:01)
[2019-07-09] MEDS: FERROUS SULFATE 325MG TABLET PO SCH ×2 (08:01→13:44)
[2019-07-09] MEDS: MAGNESIUM/ALUMINUM HYDROXIDE/SIMETHICONE 30ML UDC PO SCH ×2 (08:01→13:44)
[2019-07-09] MEDS ORDERED: IBUP-2030 MT (08:26)
[2019-07-09] MEDS ORDERED: OXYC-523 PO (08:26)
[2019-07-09 09:46] VITALS: BP 110/68
[2019-07-09 12:00] VITALS: BP 101/54
[2019-07-09 16:00] VITALS: BP 100/60
== END 2019-07-09 16:20 | disposition home or self-care (01) | DRG 540 ==
LOC: 8 EST LDRP 06:47 → OBSVTOIN 06:47 → EDBD 06:47 → CVICU 14:23 → 5EST 07-01 17:45 → 6EST 07-04 12:15
PROVIDERS: ADMIT Obstetrics & Gynecology; ATTEND Obstetrics & Gynecology
PROC: 30233K1 Transfusion of Nonautologous Frozen Plasma into Peripheral Vein, Percutaneous Approach (ICD-10-PCS; 2019-06-26)
PROC: 30233N1 Transfusion of Nonautologous Red Blood Cells into Peripheral Vein, Percutaneous Approach (ICD-10-PCS; 2019-06-26)
PROC: 02HV33Z Insertion of Infusion Device into Superior Vena Cava, Percutaneous Approach (ICD-10-PCS; 2019-06-26)
PROC: B5181ZA Fluoroscopy of Superior Vena Cava using Low Osmolar Contrast, Guidance (ICD-10-PCS; 2019-06-26)
PROC: B548ZZA Ultrasonography of Superior Vena Cava, Guidance (ICD-10-PCS; 2019-06-26)
PROC: 0UT90ZL Resection of Uterus, Supracervical, Open Approach (ICD-10-PCS; principal; 2019-06-27)
PROC: 10D00Z1 Extraction of Products of Conception, Low, Open Approach (ICD-10-PCS; 2019-06-27)
PROC: 5A1945Z Respiratory Ventilation, 24-96 Consecutive Hours (ICD-10-PCS; 2019-06-27)
DX: O32.1XX0 Maternal care for breech presentation, not applicable or unspecified (principal); J96.90 Respiratory failure, unspecified, unspecified whether with hypoxia or hypercapnia; O75.1 Shock during or following labor and delivery; A41.9 Sepsis, unspecified organism; E43 Unspecified severe protein-calorie malnutrition; O75.3 Other infection during labor; K66.1 Hemoperitoneum; J90 Pleural effusion, not elsewhere classified; Z37.0 Single live birth; E87.6 Hypokalemia; D64.9 Anemia, unspecified; O99.02 Anemia complicating childbirth; D64.89 Other specified anemias; Z3A.30 30 weeks gestation of pregnancy; O75.89 Other specified complications of labor and delivery; E83.51 Hypocalcemia; R73.9 Hyperglycemia, unspecified; O99.52 Diseases of the respiratory system complicating childbirth; O99.284 Endocrine, nutritional and metabolic diseases complicating childbirth; O25.2 Malnutrition in childbirth; O99.12 Other diseases of the blood and blood-forming organs and certain disorders involving the immune mechanism complicating childbirth; Z88.0 Allergy status to penicillin; Z68.31 Body mass index [BMI] 31.0-31.9, adult
CPT/HCPCS: 36415; 36600; 71045; 74018; 74174; 74176; 76604; 76700; 76705; 76815; 76937; 80048; 80076; 80170; 80305; 81003; 82330; 82375; 82805; 83036; 83605; 83735; 84100; 84145; 85014; 85018; 85027; 85379; 85384; 86078; 86592; 86703; 86705; 86709; 86762; 86803; 86850; 86900; 86920; 86927; 87070; 87340; 88307; 94003; 94640; 97116; 97163; 97166; 97530; 99281; C1725; C1887; C1893; C9113; J0690; J0696; J1170; J1200; J1580; J1644; J1885; J1940; J2210; J2250; J2270; J2274; J2370; J2405; J2540; J2590; J2704; J2710; J2765; J3010; J3411; J3480; J3490; J7030; J7040; J7050; J7060; J7070; J7120; J7121; J7189; J7620; P9016; P9017; P9034; P9041; Q9967; A4315

== ENCOUNTER 2019-08-17 19:10 | Emergency (ER) | payer SELFPAY ==
[~2019-08-17] VITALS: Ht 157.5 cm; Wt 62.0 kg
[~2019-08-17 19:10] MED LIST: IBUP-2030 MT; OXYC-523 PO
[2019-08-17 20:20] LABS: CLARITY URINE CLOUDY (CLEAR); COLOR URINE YELLOW (YELLOW); KETONES URINE NEGATIVE (NEGATIVE); LEUKOCYTE ESTERASE URINE 2+ (NEGATIVE); NITRITE URINE NEGATIVE (NEGATIVE); OCCULT BLOOD URINE NEGATIVE (NEGATIVE); PH URINE 5.5 (4.5-8.0); PROTEIN URINE NEGATIVE (NEGATIVE); SPECIFIC GRAVITY URINE 1.024 (1.005-1.030); UROBILINOGEN URINE 0.2 E.U./dL (0.2-1.0)
[2019-08-17 20:59] LABS: BASOPHILS % 0.6 % (0.0-2.0); EOSINOPHILS % 2.2 % (0.0-5.0); HEMATOCRIT. 36.1 % (36.0-48.0); HEMOGLOBIN. 12.4 g/dL (12.0-16.0); LYMPHOCYTES % 27.2 % (20.0-50.0); MEAN CORPUSCULAR VOLUME 87.3 fL (81.0-99.0); MEAN PLATELET VOLUME 7.9 fl (7.4-10.4); PLATELET 219 x1000/uL (130-400); RED BLOOD CELL COUNT 4.14 mill/uL (4.2-5.4); RED CELL DISTRIBUTION WIDTH 13.4 % (11.6-14.6)
[2019-08-17 21:06] LABS: CHLORIDE 109 mEq/L (98-107)
[2019-08-17 21:11] LABS: C REACTIVE PROTEIN QUANT 0.9 mg/L (0.0-3.0)
[2019-08-17 21:13] LABS: HCG SCREEN NEGATIVE
[2019-08-18] MEDS ORDERED: CEFTRIAXONE 1 G PREMIX 50 ML IV ONE (00:45)
[2019-08-18] MEDS ORDERED: CEFTRIAXONE SODIUM 1 G/VIAL IM ONE (00:45)
[2019-08-18] MEDS ORDERED: LIDOCAINE HCL 1% 20ML VIAL (Pyxis) INJ INFIL ONE (00:45)
[2019-08-18 00:56] VITALS: BP 116/66
[2019-08-18] MEDS ORDERED: IOHEXOL-300 100 ML BOTTLE ONE (01:08)
== END 2019-08-18 01:11 | disposition home or self-care (01) ==
LOC: ER 19:10
DX: R10.9 Unspecified abdominal pain (principal); N89.8 Other specified noninflammatory disorders of vagina; Z98.890 Other specified postprocedural states; Z90.710 Acquired absence of both cervix and uterus
CPT/HCPCS: 36415; 74177; 80048; 81003; 81025; 84145; 84703; 85025; 86140; 87210; 87491; 87591; 96365; 99284; J0696; J3490; Q9967; Z7610